=== PATIENT | male | born 1990 | race Hispanic/Latino ===

== ENCOUNTER 2017-03-24 12:26 | Emergency (ER) | payer BC, OTHER ==
[2017-03-24 12:32] VITALS: BMI 29.4
[2017-03-24] MEDS ORDERED: Albuterol-Ipratrop 3 mg / 0.5 (3 ml) UD IH STA (12:34)
[2017-03-24] MEDS ORDERED: Albuterol-Ipratrop 3 mg / 0.5 (3 ml) UD ONE (12:39)
--- NOTE | 2017-03-24 12:39 | ED PDOC ---
Arrival/HPI - General Chief Complaint: Shortness Of Breath Time Seen by Provider: 03/24/17 12:30 Historian: Patient - History of Present Illness Narrative History of Present Illness (Text): 03/24/17 12:35 Alber Nguyen is a 26 year old male, with a history of asthma, presents to the emergency department complaining of URI symptoms including cough, sore throat and runny nose for past 3 days. Patient reports of occasional difficulty breathing, which is worsened while walking. States SOB has been constant since last night. Reports cough is accompanied with greenish sputum production. Denies fever, chills, dizziness, chest pain, abdominal pain, nausea, vomiting, diarrhea, urinary symptoms, or any other complaints at this time. PMD: . Time/Duration: Other (3 day) Symptom Onset: Gradual Severity Level: Mild Activities at Onset: Light Associated Symptoms (Text): 03/24/17 12:56 Several day history of cough congestion and URI with green sputum. He develop shortness of breath overnight. No chest pain. No fever. Past Medical History - Provider Review Nursing Documentation Reviewed: Yes - Past History Past History: No Previous (and is) - Past Medical History Past Medical History: No Previous - Pulmonary Hx Asthma: Yes - Musculoskeletal/Rheumatological Hx Falls: No - Psychiatric Hx Depression: No Hx Emotional Abuse: No Hx Physical Abuse: No Hx Substance Use: No - Past Surgical History Past Surgical History: No Previous - Suicidal Assessment Feels Threatened In Home Enviroment: No Family/Social History - Physician Review Nursing Documentation Reviewed: Yes Family/Social History: No Known Family HX Smoking Status: Never Smoked Hx Alcohol Use: Yes (social) Frequency of alcohol use: Socially Hx Substance Use: No Hx Substance Use Treatment: No Allergies/Home Meds Allergies/Adverse Reactions: Allergies No Known Allergies Allergy (Verified 03/24/17 12:31) Review of Systems - Physician Review All systems were reviewed & negative as marked: Yes - Review of Systems Constitutional: Normal. absent: Fatigue, Fevers ENT: Sore Throat, Rhinorrhea Respiratory: SOB, Cough, Sputum Cardiovascular: absent: Chest Pain, Palpitations, Edema Gastrointestinal: absent: Abdominal Pain, Diarrhea, Nausea, Vomiting Neurological: absent: Headache, Dizziness Psychiatric: Normal Physical Exam Vital Signs Reviewed: Yes Vital Signs Temp Pulse Resp BP Pulse Ox 03/24/17 12:34 18 96 03/24/17 12:30 98.3 F 115 H 18 140/89 93 L Temperature: Afebrile Blood Pressure: Normal Pulse: Tachycardic Respiratory Rate: Normal Appearance: Positive for: Non-Toxic, Uncomfortable Pain Distress: None Mental Status: Positive for: Alert and Oriented X 3 - Systems Exam Head: Present: Atraumatic, Normocephalic Pupils: Present: PERRL Conjunctiva: Present: Normal Ears: Present: NORMAL TM, Normal Canal. No: Erythema Mouth: Present: Moist Mucous Membranes Pharnyx: No: ERYTHEMA, EXUDATE, TONSILS ENLARGED Respiratory/Chest: Present: Good Air Exchange, Wheezes, Decreased Breath Sounds. No: Respiratory Distress, Accessory Muscle Use, Rales, Retracting, Rhonchi, Tachypneic, Tender to Palpation Cardiovascular: Present: Regular Rate and Rhythm, Normal S1, S2. No: Murmurs Abdomen: Present: Normal Bowel Sounds. No: Tenderness, Distention, Peritoneal Signs Upper Extremity: Present: Normal Inspection. No: Cyanosis, Edema Lower Extremity: Present: Normal Inspection. No: Edema Neurological: Present: GCS=15, CN II-XII Intact, Speech Normal, Motor Func Grossly Intact, Normal Sensory Function Skin: Present: Warm, Dry, Normal Color. No: Rashes Psychiatric: Present: Alert, Oriented x 3, Normal Insight, Normal Concentration Medical Decision Making ED Course and Treatment: 03/24/17 12:40 Impression: A 26 y/o male who presents to the ed complaining of URI symptoms and worsening shortness of breath. Plan: -- Duoneb -- CXR Progress Notes: - RAD Interpretation Radiology Orders: 03/24/17 12:34 CHEST TWO VIEWS (PA/LAT) [RAD] Stat Chest 2 view shows no infiltrate effusion or cardiomegaly Correspondent: ED Physician - Medication Orders Current Medication Orders: Albuterol Sulfate (Albuterol 0.083% Inhal Martha (2.5 Mg/3 Ml) Ud) 2.5 mg IH STAT STA Stop: 03/24/17 13:36 Discontinued Medications Albuterol/Ipratropium (Duoneb 3 Mg/0.5 Mg (3 Ml) Ud) 3 ml IH ONCE STA Stop: 03/24/17 12:35 Last Admin: 03/24/17 12:39 Dose: 3 ml Albuterol/Ipratropium (Duoneb 3 Mg/0.5 Mg (3 Ml) Ud) Confirm Administered Dose 3 ml .ROUTE .STK-MED ONE Stop: 03/24/17 12:40 Last Admin: 03/24/17 12:42 Dose: - Scribe Statement The provider has reviewed the documentation as recorded by the Ramandeep Kemp Provider Attestation: All medical record entries made by the Leeannibe were at my direction and personally dictated by me. I have reviewed the chart and agree that the record accurately reflects my personal performance of the history, physical exam, medical decision making, and the department course for this patient. I have also personally directed, reviewed, and agree with the discharge instructions and disposition. Disposition/Present on Arrival - Present on Arrival Any Indicators Present on Arrival: No History of DVT/PE: No History of Uncontrolled Diabetes: No Urinary Catheter: No History of Decub. Ulcer: No History Surgical Site Infection Following: None - Disposition Have Diagnosis and Disposition been Completed?: Yes Diagnosis: Asthmatic bronchitis Disposition: HOME/ ROUTINE Disposition Time: 13:37 Patient Plan: Discharge Condition: IMPROVED Discharge Instructions (ExitCare): Acute Bronchitis (ED), Bronchospasm (ED) Additional Instructions: Symptomatic treatment. Tylenol or Advil as directed on bottle as needed. Follow- up with PMD. Follow up in ER as needed. Prescriptions: Benzonatate [Tessalon Perles] 100 mg PO Q8 #30 sgl Albuterol HFA [Ventolin HFA 90 mcg/actuation (8 g)] 2 puff IH [id number] #1 puff Azithromycin [Zithromax] 250 mg PO DAILY #6 tab Forms: WORK NOTE
--- NOTE | 2017-03-24 13:32 | RAD ---
HISTORY: Cough. COMPARISON: 11/11/2013. TECHNIQUE: Chest PA and lateral FINDINGS: LUNGS: No active pulmonary disease. PLEURA: No significant pleural effusion identified. No pneumothorax apparent. CARDIOVASCULAR: Normal. OSSEOUS STRUCTURES: No significant abnormalities. VISUALIZED UPPER ABDOMEN: Normal. OTHER FINDINGS: None. IMPRESSION: No active disease. No significant interval change compared to the prior examination(s).
[2017-03-24] MEDS ORDERED: Albuterol 0.083% Inhal Sol (2.5 mg/3 mL) UD IH STA (13:35)
[2017-03-24] MEDS ORDERED: Albuterol 0.083% Inhal Sol (2.5 mg/3 mL) UD ONE (13:41)
[2017-03-24 14:08] VITALS: BP 119/65; PULSE 82; RESP 16; TEMP 98; O2SAT 100
== END 2017-03-24 14:08 | disposition home or self-care (01) ==
LOC: ED 12:26
DX: J45.909 Unspecified asthma, uncomplicated (principal)